=== PATIENT | male | born 1985 | race Caucasian/White ===

== ENCOUNTER 2019-06-22 02:10 | Emergency (ER) | payer BC ==
[~2019-06-22] VITALS: Ht 180.3 cm; Wt 75.0 kg
[~2019-06-22 02:10] MED LIST: LORTAB 5/500 501 TAB PO; LORTAB 7.5/5001 TAB PO; NO HOME MEDICATIONS; NORCO 325 MG-51 TAB PO; PEN-VEE K500 MG PO; PENICILLIN V250 MG PO; PROTONIX 40MG T40 MG PO; SEPTRA DS 8001 TAB PO; ULTRAM50 MG PO; ZITHROMAX Z PA250 MG PO; ZOFRAN 4MG T4 MG/TAB PO
[2019-06-22 03:21] VITALS: BP 115/67; PULSE 51; TEMP 98.4
== END 2019-06-22 03:32 | disposition home or self-care (01) ==
LOC: COL.ER 02:10
DX: S05.02XA Injury of conjunctiva and corneal abrasion without foreign body, left eye, initial encounter (principal); S05.01XA Injury of conjunctiva and corneal abrasion without foreign body, right eye, initial encounter; F17.210 Nicotine dependence, cigarettes, uncomplicated; X58.XXXA Exposure to other specified factors, initial encounter